=== PATIENT | female | born 1975 | race Two or more races ===

== ENCOUNTER → 2019-03-05 | Outpatient (CLI) | payer BC ==
[2019-03-05 15:52] LABS: Free T4 (Free Thyroxine) 1.13 ng/dL (0.89-1.76)
[2019-03-05 15:53] LABS: Free T3 3.15 pg/mL (2.3-4.2)
== END | disposition home or self-care (01) ==
LOC: LAB 15:00
PROVIDERS: ATTEND Internal Medicine
DX: E05.90 Thyrotoxicosis, unspecified without thyrotoxic crisis or storm (principal)
CPT/HCPCS: 36415; 84439; 84443; 84481

== ENCOUNTER 2019-06-04 07:31 | Inpatient (IN) | payer BC ==
[~2019-06-04] VITALS: Ht 152.4 cm; Wt 83.3 kg
[2019-06-04] MEDS ORDERED: KETOROLAC TROMETH 30 MG/ML 1ML VIAL IV ONE (08:00)
[2019-06-04] MEDS ORDERED: METOCLOPRAMIDE HCL 5MG/ml INJ 2ml VIAL IV ONE (08:00)
[2019-06-04 08:09] LABS: Urine Amorphous Crystal FEW /hpf (None Seen); Urine Bacteria FEW /hpf (None Seen); Urine Blood 2+ /uL (Negative); Urine Mucus FEW (None Seen); Urine Specific Gravity 1.033 (1.001-1.035); Urine WBC 10 /hpf (0 - 5)
[2019-06-04 08:09] LABS: Basophils # (auto) 0.1 uL; Basophils % (auto) 0.8 % (0.0-2.0); Eosinophils # (auto) 0.3 uL; Eosinophils % (auto) 3.6 % (0.0-7.0); Hematocrit 47.9 % (36.0-46.0); Hemoglobin 16.4 g/dL (12.2-16.2); Lymphocytes # (auto) 2.2 uL; Lymphocytes % (auto) 23.9 % (10.0-50.0); Mean Corpuscular Hemoglobin 31.4 pg (28.0-32.0); Mean Corpuscular Hgb Conc. 34.2 g/dL (32.0-36.0); Monocytes # (auto) 0.5 uL; Monocytes % (auto) 5.9 % (0.0-12.0); Neutrophils % (auto) 65.8 % (37.0-80.0); Nucleated Red Blood Cells % 0.2 %; Platelet Count (auto) 247 10^3/uL (140-450); Red Cell Distribution Width 13.4 % (11.8-14.3); White Blood Cell 9.2 10^3/uL (4.4-10.8)
[2019-06-04 08:28] LABS: Albumin 4.3 g/dL (3.4-5.0); Calcium 9.3 mg/dL (8.5-10.1); Potassium 3.9 mmol/L (3.5-5.1)
[2019-06-04 08:32] LABS: BUN/Creatinine Ratio 19.8; Bilirubin, Total 0.8 mg/dL (0.2-1.0); Total Protein 8.2 g/dL (6.4-8.2)
[2019-06-04] MEDS ORDERED: HYDROmorphone HCL 2 MG/ML VL IV ONE (09:30)
[2019-06-04] MEDS ORDERED: ONDANSETRON HCL 4 MG/2 ML VIAL IV ONE (09:30)
[2019-06-04] MEDS ORDERED: MORPHINE SULF INJ 2 MG/ML SYRINGE 1ML IV PRN (09:45)
[2019-06-04] MEDS ORDERED: hydrALAZINE HCL 20 MG/ML VL IV PRN (09:45)
[2019-06-04] MEDS ORDERED: HYDROcodone-ACET 5/325MG TAB PO PRN (09:45)
[2019-06-04] MEDS ORDERED: SODIUM CHLORIDE 0.9% 1,000 ML IV ONE (09:45)
[2019-06-04] MEDS ORDERED: ACETAMINOPHEN 500 MG TAB PO PRN (09:45)
[2019-06-04] MEDS: TAMSULOSIN HYDROCHLORIDE 0.4 MG CAP PO SCH ×2 (10:36→17:50)
[2019-06-04] MEDS: FAMOTIDINE 20 MG TAB PO SCH (10:37)
[2019-06-04] MEDS: DOCUSATE SOD 100 MG CAP PO SCH ×2 (10:37→22:14)
[2019-06-04] MEDS: SODIUM CHLORIDE 0.9% 1,000 ML IV SCH ×2 (10:46→15:13)
--- NOTE | 2019-06-04 11:16 | NUR ---
MS admit from ER HUANG,JUNE admitted to tele/MS after SBAR received. Patient oriented to CECILIA SHAFFER, RN primary RN,med-surg unit, room 280, bed A, and unit policies regarding patient care and visiting hours. Patient weighed by bedscale and encouraged to call if they need something. All questions and concerns addressed, patient verbalized understanding.
--- NOTE | 2019-06-04 11:45 | NUR ---
PATIENT REPORTING PAIN 02/04. MSO4- NOT MANAGING PAIN WELL DILAUDID. THIS RN TO CALL HOSPITALIST FOR SCHEDULED DILAUDID.
--- NOTE | 2019-06-04 11:53 | NUR ---
FILTER PLACED IN BATHROOM. EDUCATED PATIENT TO CALL THIS RN IF PATIENT REPORTS PASSING STONE.
[2019-06-04 12:03] VITALS: BP 142/92
--- NOTE | 2019-06-04 12:47 | NUR ---
PATIENT USING BATHROOM CALL LIGHT, PATIENT FOUND SITTING ON TOILET, IN TEARS. PATIENT CRYING WITH PAIN AND FEAR. THIS RN ADMINISTERED PAIN MEDICATION ORDERED. PATIENT RETURNED TO BED, AND BECAME MUCH MORE COMFORTABLE. THIS RN NOTED TISSUE IN URINE FILTER, NO STONES.
[2019-06-04] MEDS: HYDROmorphone HCL 2 MG/ML VL IV PRN ×3 (12:48→20:30)
[2019-06-04] MEDS ORDERED: MANNITOL FTV 25% 12.5 GM/50 ML 50 ML IV ONE (13:30)
--- NOTE | 2019-06-04 16:54 | NUR ---
URINE STRAINED FOR A SECOND TIME. NO STONES PRESENT.
[2019-06-04 17:00] VITALS: BP 138/84
--- NOTE | 2019-06-04 18:48 | NUR ---
CLOSING SHIFT NOTE: PATIENT RESTING COMFORTABLY IN BED WITH WARM HEAT PACKS. EDUCATED ON CALLING WHEN DONE URINATING FOR STRAINING OF STONE. PATIENT VERBALIZED UNDERSTANDING. EDUCATED ON NEXT DUE PAIN MEDICATION. AT BEDSIDE. WILL ENDORSE CARE TO NOC RN.
[2019-06-04] MEDS: ONDANSETRON HCL 4 MG/2 ML VIAL IV PRN (19:19)
--- NOTE | 2019-06-04 19:27 | NUR ---
CARE ENDORSED TO DEION LEA.
--- NOTE | 2019-06-04 21:46 | NUR ---
NAUSEA PATIENT C/O NAUSEA EVEN WITH ZOFRAN 4MG IV EVERY 4HRS PRN LAST GIVEN 2 HRS PRIOR. AND REQUESTING NAUSEA MEDICATION. PAGED HOSPITALIST AWAITING CALL BACK FOR ORDERS.
[2019-06-04] MEDS ORDERED: PROMETHAZINE HCL 25 MG/ML 1ML IV ONE (22:00)
[2019-06-04 23:49] VITALS: BP 142/90
[2019-06-05 04:58] VITALS: BP 125/82
[2019-06-05 06:09] LABS: Basophils # (auto) 0.1 uL; Basophils % (auto) 0.5 % (0.0-2.0); Eosinophils # (auto) 0 uL; Eosinophils % (auto) 0.5 % (0.0-7.0); Hematocrit 39.2 % (36.0-46.0); Hemoglobin 13.4 g/dL (12.2-16.2); Lymphocytes # (auto) 1.2 uL; Lymphocytes % (auto) 11.8 % (10.0-50.0); Mean Corpuscular Hemoglobin 31.7 pg (28.0-32.0); Mean Corpuscular Hgb Conc. 34.2 g/dL (32.0-36.0); Mean Corpuscular Volume 92.5 fL (80.0-100.0); Monocytes # (auto) 1.1 uL; Monocytes % (auto) 10.5 % (0.0-12.0); Neutrophils % (auto) 76.7 % (37.0-80.0); Platelet Count (auto) 195 10^3/uL (140-450); Red Blood Cells 4.23 10^6/uL (4.0-5.20); Red Cell Distribution Width 13.1 % (11.8-14.3); White Blood Cell 10.4 10^3/uL (4.4-10.8)
[2019-06-05 06:28] LABS: Calcium 8.1 mg/dL (8.5-10.1); Potassium 4.8 mmol/L (3.5-5.1)
[2019-06-05] MEDS: SODIUM CHLORIDE 0.9% 1,000 ML IV SCH ×3 (07:30→17:36)
[2019-06-05] MEDS: HYDROmorphone HCL 2 MG/ML VL IV PRN ×4 (08:17→22:31)
[2019-06-05] MEDS: FAMOTIDINE 20 MG TAB PO SCH (08:18)
[2019-06-05] MEDS: DOCUSATE SOD 100 MG CAP PO SCH ×2 (08:18→22:24)
[2019-06-05] MEDS: ONDANSETRON HCL 4 MG/2 ML VIAL IV PRN (08:18)
[2019-06-05 09:00] VITALS: BP 135/89
[2019-06-05] MEDS ORDERED: MANNITOL FTV 25% 12.5 GM/50 ML 50 ML IV ONE (10:00)
--- NOTE | 2019-06-05 12:00 | NUR ---
Patient refusing guevara catheter at this time. Wants to speak to doctor shaikh francesca.
[2019-06-05 13:00] VITALS: BP 125/92
--- NOTE | 2019-06-05 14:35 | NUR ---
DOCTOR AT BEDSIDE. NEW ORDERS RECEIVED, SEE EMR FOR ORDERS.
[2019-06-05] MEDS ORDERED: HYDROmorphone HCL 2 MG/ML VL IV ONE (14:45)
[2019-06-05 16:39] VITALS: BP 141/94
--- NOTE | 2019-06-05 17:29 | NUR ---
RECEIVED CALL BACK FROM DOCTOR PANCHO, INFORMED MD OF BREAK THROUGH PAIN AFTER DILAUDID, AND PATIENT SAYING SHE HAS UNBEARABLE PAIN IN LEFT FLANK AND SIDE. RN ASK IF MD WANTED REPEAT CT, MD STATED NO NEED AT THIS TIME. NEW ORDERS RECEIVED FOR PAIN MEDS, SEE EMR FOR ORDER.
[2019-06-05] MEDS: TAMSULOSIN HYDROCHLORIDE 0.4 MG CAP PO SCH (17:42)
[2019-06-05] MEDS ORDERED: KETOROLAC TROMETH 30 MG/ML 1ML VIAL IV ONE (17:45)
[2019-06-05 23:42] VITALS: BP 145/95
[2019-06-06] MEDS: SODIUM CHLORIDE 0.9% 1,000 ML IV SCH ×3 (01:31→17:45)
[2019-06-06] MEDS: ONDANSETRON HCL 4 MG/2 ML VIAL IV PRN ×3 (03:25→21:50)
[2019-06-06] MEDS: HYDROmorphone HCL 2 MG/ML VL IV PRN ×3 (03:29→21:50)
--- NOTE | 2019-06-06 03:48 | NUR ---
LOWER ABDOMINAL PAIN PATIENT C/O 10/10 ABDOMINAL PAIN AND NAUSEA. ADMINSITERED DILAUDID 1MG IV AND ZOFRAN 4MG IV PRESCRIBED. PATIENT TOLERATED WELL. PATIENT BROUGHT BACK TO BED. WARM COMPRESS APPLLIED TO LOWER ABDOMEN.
[2019-06-06 05:28] VITALS: BP 148/96
[2019-06-06 06:12] LABS: Basophils # (auto) 0 uL; Basophils % (auto) 0.4 % (0.0-2.0); Eosinophils # (auto) 0.1 uL; Eosinophils % (auto) 1.2 % (0.0-7.0); Hemoglobin 13.2 g/dL (12.2-16.2); Lymphocytes # (auto) 0.8 uL; Lymphocytes % (auto) 8.2 % (10.0-50.0); Mean Corpuscular Hemoglobin 31.8 pg (28.0-32.0); Mean Corpuscular Hgb Conc. 34.6 g/dL (32.0-36.0); Mean Corpuscular Volume 91.9 fL (80.0-100.0); Monocytes # (auto) 0.8 uL; Monocytes % (auto) 7.7 % (0.0-12.0); Neutrophils # (auto) 8.5 uL; Neutrophils % (auto) 82.5 % (37.0-80.0); Nucleated Red Blood Cells % 0.1 %; Platelet Count (auto) 176 10^3/uL (140-450); Red Blood Cells 4.13 10^6/uL (4.0-5.20); Red Cell Distribution Width 13.1 % (11.8-14.3); White Blood Cell 10.3 10^3/uL (4.4-10.8)
[2019-06-06 06:29] LABS: BUN/Creatinine Ratio 14.1; Potassium 4.1 mmol/L (3.5-5.1)
--- NOTE | 2019-06-06 07:45 | NUR ---
Opening Shift Note Assumed care of patient, awake and alert. Respiration are even and unlabored no S/S of distress noted. Bed in lowest position, breaks locked, side rails up x2, call light with in reach. Instructed on POC and to call for assist PRN, will continue to monitor for changes Q1hr and PRN.
[2019-06-06] MEDS: FAMOTIDINE 20 MG TAB PO SCH (07:55)
[2019-06-06] MEDS: DOCUSATE SOD 100 MG CAP PO SCH ×2 (07:55→21:50)
[2019-06-06 08:50] VITALS: BP 141/92
[2019-06-06] MEDS ORDERED: ELET40TA PO (10:08)
[2019-06-06] MEDS ORDERED: HYDROcodone-ACET 5/325MG TAB PO PRN (11:00)
[2019-06-06] MEDS: KETOROLAC TROMETH 30 MG/ML 1ML VIAL IV PRN ×2 (11:10→17:45)
[2019-06-06 12:49] VITALS: BP 158/99
[2019-06-06 16:49] VITALS: BP 146/90
[2019-06-06] MEDS: TAMSULOSIN HYDROCHLORIDE 0.4 MG CAP PO SCH (17:46)
[2019-06-06] MEDS: PHENAZOPYRIDINE HCL 100 MG TAB PO SCH (17:46)
[2019-06-06 22:36] VITALS: BP 146/96
[2019-06-07] MEDS: SODIUM CHLORIDE 0.9% 1,000 ML IV SCH ×2 (01:31→09:31)
[2019-06-07 05:38] VITALS: BP 132/87
[2019-06-07 06:01] LABS: Calcium 8.6 mg/dL (8.5-10.1); Potassium 3.8 mmol/L (3.5-5.1)
[2019-06-07 06:02] LABS: BUN/Creatinine Ratio 14.3
[2019-06-07] MEDS: PHENAZOPYRIDINE HCL 100 MG TAB PO SCH ×2 (08:16→12:09)
[2019-06-07 09:00] VITALS: BP 144/100
[2019-06-07] MEDS: FAMOTIDINE 20 MG TAB PO SCH (09:57)
[2019-06-07] MEDS: DOCUSATE SOD 100 MG CAP PO SCH (09:57)
[2019-06-07 13:00] VITALS: BP 153/105
--- NOTE | 2019-06-07 15:03 | NUR ---
Nutrition Assessment Notes Please refer to link for full assessment notes Est energy needs: 5370-4055 kcals (14-18 kcal/kgBW) Est protein needs: 67-83 gms/day (0.8-1.0 gm/kgBW) Will continue to monitor and reassess prn Addendum: 06/07/19 at [address] Amended: Links added.
[2019-06-07 15:40] VITALS: BP 138/76
[2019-06-07 15:57] VITALS: BP 139/79
== END 2019-06-07 16:30 | disposition home or self-care (01) | DRG 694 ==
LOC: ER 07:31 → WEST WING 11:07 → UNDOADMIN 11:12 → WEST WING 11:55
PROVIDERS: ADMIT Nurse Practitioner Acute Care; ATTEND Internal Medicine
DX: N13.2 Hydronephrosis with renal and ureteral calculous obstruction (principal); E05.00 Thyrotoxicosis with diffuse goiter without thyrotoxic crisis or storm; E86.0 Dehydration; N18.3 Chronic kidney disease, stage 3 (moderate); N17.0 Acute kidney failure with tubular necrosis; E66.9 Obesity, unspecified; Z68.35 Body mass index [BMI] 35.0-35.9, adult; Z90.710 Acquired absence of both cervix and uterus; Z90.49 Acquired absence of other specified parts of digestive tract; Z88.5 Allergy status to narcotic agent; Z82.49 Family history of ischemic heart disease and other diseases of the circulatory system; Z79.899 Other long term (current) drug therapy
CPT/HCPCS: 36415; 74176; 80048; 80053; 81001; 83735; 84443; 85025; 96361; 96374; 96375; G0378; J1885; J2405

== ENCOUNTER → 2019-12-09 | Outpatient (CLI) | payer BC ==
[~2019-12-09] MED LIST: ELET40TA PO
[2019-12-09 10:11] LABS: Basophils # (auto) 0.1 10 ^3/uL (0-0.2); Basophils % (auto) 1.7 % (0.0-2.0); Eosinophils # (auto) 0.3 10 ^3/uL (0-0.8); Eosinophils % (auto) 5.2 % (0.0-7.0); Hematocrit 47.3 % (36.0-46.0); Hemoglobin 15.9 g/dL (12.2-16.2); Lymphocytes # (auto) 1.9 10 ^3/uL (0.4-5.4); Lymphocytes % (auto) 33.2 % (10.0-50.0); Mean Corpuscular Hemoglobin 30.6 pg (28.0-32.0); Mean Corpuscular Hgb Conc. 33.6 g/dL (32.0-36.0); Mean Corpuscular Volume 91.1 fL (80.0-100.0); Monocytes # (auto) 0.4 10 ^3/uL (0-1.3); Monocytes % (auto) 7.8 % (0.0-12.0); Neutrophils # (auto) 2.9 10 ^3/uL (1.6-8.6); Neutrophils % (auto) 52.1 % (37.0-80.0); Platelet Count (auto) 254 10^3/uL (140-450); Red Blood Cells 5.19 10^6/uL (4.0-5.20); Red Cell Distribution Width 13.3 % (11.8-14.3); White Blood Cell 5.6 10^3/uL (4.4-10.8)
[2019-12-09 10:31] LABS: Potassium 4.5 mmol/L (3.5-5.1)
[2019-12-09 10:37] LABS: Free T4 (Free Thyroxine) 1.11 ng/dL (0.89-1.76)
[2019-12-09 10:38] LABS: Free T3 2.74 pg/mL (2.3-4.2)
[2019-12-09 10:41] LABS: Bilirubin, Total 0.6 mg/dL (0.2-1.0); Calcium 9.2 mg/dL (8.5-10.1); Total Protein 7.4 g/dL (6.4-8.2)
== END | disposition home or self-care (01) ==
LOC: LAB 09:13
PROVIDERS: ATTEND Internal Medicine
DX: E05.90 Thyrotoxicosis, unspecified without thyrotoxic crisis or storm (principal); G43.109 Migraine with aura, not intractable, without status migrainosus
CPT/HCPCS: 36415; 80053; 80061; 83036; 84439; 84443; 84481; 85025

== ENCOUNTER 2024-10-13 05:32 | Emergency (ER) | payer BC, OTHER ==
[~2024-10-13] VITALS: Ht 160 cm; Wt 75.0 kg
[2024-10-13] MEDS: SODIUM CHLORIDE 0.9% 1,000 ML IV ONE ×2 (06:24→07:08)
[2024-10-13] MEDS: KETOROLAC TROMETH 30 MG/ML 1ML VIAL IV ONE (06:24)
[2024-10-13 06:50] VITALS: PULSE 98; RESP 18; O2SAT 100
[2024-10-13 06:51] LABS: Basophils # (auto) 0.1 10 ^3/uL (0-0.2); Basophils % (auto) 1.3 % (0.0-2.0); Eosinophils # (auto) 0.5 10 ^3/uL (0-0.8); Eosinophils % (auto) 7.1 % (0.0-7.0); Hematocrit 42.7 % (36.0-46.0); Hemoglobin 14.6 g/dL (12.2-16.2); Lymphocytes # (auto) 2.1 10 ^3/uL (0.4-5.4); Lymphocytes % (auto) 32.3 % (10.0-50.0); Mean Corpuscular Hgb Conc. 34.2 g/dL (32.0-36.0); Mean Corpuscular Volume 90.7 fL (80.0-100.0); Monocytes # (auto) 0.4 10 ^3/uL (0-1.3); Monocytes % (auto) 5.8 % (0.0-12.0); Neutrophils # (auto) 3.5 10 ^3/uL (1.6-8.6); Neutrophils % (auto) 53.5 % (37.0-80.0); Nucleated Red Blood Cells % 0.1 %; Platelet Count (auto) 266 10^3/uL (140-450); Red Blood Cells 4.71 10^6/uL (4.0-5.20); Red Cell Distribution Width 13.4 % (11.8-14.3); White Blood Cell 6.5 10^3/uL (4.4-10.8)
--- NOTE | 2024-10-13 06:52 | ED.PDOC ---
General HPI Comments 49 year old female presents to the ED with a chief complaint of flank pain onset today (10/13/24). Patient states she woke up this morning experiencing LT flank pain radiating to LT back. Since yesterday, she began experiencing dysuria with dark urine. Patient has experienced kidney stones in the past, noticed pain is similar. PMHx kidney stones. Denies fever, chills, hematuria, nausea, vomiting, diarrhea, headache, dizziness. No other symptoms or modifying factors present at this time. Chief Complaint: Flank Pain Time Seen by MD: 06:40 Reviewed notes: Medications, Allergies Allergies: Coded Allergies: Codeine (Verified Allergy, Unknown, 06/04/19) Home Meds Reported Medications Eletriptan Hydrobromide (Relpax) 40 Mg Tab, 40 MG PO, TAB 06/06/19 Information Source: Patient Mode of Arrival: Ambulatory Severity: Moderate Timing: Hours Duration: Since onset Prehospital treatment: None Onset: Spontaneous Symptoms: Dysuria History of: Kidney stone Location: (L)Flank Modifying factors: None associated signs and symptoms: Flank Pain, Back Pain, Dysuria Past Medical History PAST MEDICAL HISTORY: Kidney Stones, Thyroid Surgical History: Appendectomy, Hernia Repair, Hysterectomy [employer] History: No Pertinent [employer] History Family History Family History: Reviewed,noncontributory to illness Social History Smoker: Non-Smoker Alcohol: Denies ETOH Use Drugs: Denies Drug Use Lives In: Home Constitutional: denies: chills, diaphoresis, fatigue, fever, malaise, sweats, weakness, others EENTM: denies: blurred vision, double vision, ear bleeding, ear discharge, ear drainage, ear pain, ear ringing, eye pain, eye redness, hearing loss, mouth pain, mouth swelling, nasal discharge, nose bleeding, nose congestion, nose pain, photophobia, tearing, throat pain, throat swelling, voice changes, others Respiratory: denies: cough, hemoptysis, orthopnea, SOB at rest, shortness of breath, SOB with excertion, stridor, wheezing, others Cardiovascular: denies: chest pain, dizzy spells, diaphoresis, Dyspnea on exertion, edema, irregular heart beat, left arm pain, lightheadedness, palpitations, PND, syncope, others Gastrointestinal: denies: abdomen distended, abdominal pain, blood streaked bowels, constipated, diarrhea, dysphagia, difficulty swallowing, hematemesis, melena, nausea, poor appetite, poor fluid intake, rectal bleeding, rectal pain, vomiting, others Genitourinary: reports: dysuria, flank pain (LT); denies: abnormal vagina bleeding, burning, dyspareunia, frequency, hematuria, incontinence, pain, , vagina discharge, urgency, others Neurological: denies: dizziness, fainting, headache, left sided numbness, left sided weakness, numbness, paresthesia, pre-existing deficit, right sided numbness, right sided weakness, seizure, speech problems, tingling, tremors, weakness, others Musculoskeletal: reports: back pain; denies: gout, joint pain, joint swelling, muscle pain, muscle stiffness, neck pain, others Integumetry: denies: bruises, change in color, change in hair/nails, dryness, laceration, lesions, lumps, rash, wounds, others Allergic/Immunocompromised: denies: Difficulty Healing, Frequent Infections, Hives, Itching, others Hematologic/Lymphatic: denies: anemia, blood clots, easy bleeding, easy bruising, swollen glands, others Endocrine: denies: excessive hunger, excessive sweating, excessive thirst, excessive urination, flushing, intolerance to cold, intolerance to heat, unexplained weight gain, unexplained weight loss, others Psychiatric: denies: anxiety, bipolar disorder, depression, hopeless, panic disorder, schizophrenia, sleepless, suicidal, others All Other Systems: Reviewed and Negative Physical Exam General Appearance: No Apparent Distress, Normal HEENT: Normal ENT Inspection, Pharynx Normal, TMs Normal Neck: Full Range of Motion, Non-Tender, Normal, Normal Inspection Respiratory: Chest Non-Tender, Lungs Clear, No Accessory Muscle Use, No Res piratory Distress, Normal Breath Sounds Cardiovascular: No Edema, No JVD, No Murmur, No Gallop, Normal Peripheral Pulses, Regular Rate/Rhythm Breast Exam: Deferred Gastrointestinal: No Organomegaly, Non Tender, No Pulsatile Mass, Normal Bowel Sounds, Soft Genitalia: Deferred Pelvic: Deferred Rectal: Deferred Extremities: No calf tenderness, Normal capillary refill, Normal inspection, Normal range of motion, Non-tender, No pedal edema Musculoskeletal : Apperance: Normal Neurologic: Alert, paper machine back tender II-XII nml as Tested, No Motor Deficits, Normal Affect, Normal Mood, No Sensory Deficits Cerebellar Function: Normal Reflexes: Normal Skin: Dry, Normal Color, Warm Lymphatic: No Adenopathy Was a procedure done? Was a procedure done?: No Differential Diagnosis Kidney stone (Female): Pyelonephritis, Renal failure, Urinary obstruction, Urolithiasis Kidney stone (Male): N/A Penile/Scrotal: N/A Urinary Problem (Male): N/A Urinary Problem (Female): UTI X-Ray, Labs, Meds, VS Vital Signs Date Time Temp Pulse Resp B/P (MAP) Pulse Ox O2 Delivery O2 Flow Rate FiO2 10/13/24 07:50 91 15 130/87 10/13/24 07:04 80 18 131/88 10/13/24 06:50 98 18 100 Room Air* 0 21 10/13/24 06:50 98.2 98 18 145/93 (110) 100 98.2 10/13/24 05:55 98.3 92 20 131/88 (102) 96 98.3 Lab Test 10/13/24 06:20 10/13/24 05:48 Range/Units White Blood Count 6.5 4.4-10.8 10^3/uL Red Blood Count 4.71 4.0-5.20 10^6/uL Hemoglobin 14.6 12.2-16.2 g/dL Hematocrit 42.7 36.0-46.0 % Mean Corpuscular Volume 90.7 80.0-100.0 fL Mean Corpuscular Hemoglobin 31.0 28.0-32.0 pg Mean Corpuscular Hemoglobin Concent 34.2 32.0-36.0 g/dL Red Cell Distribution Width 13.4 11.8-14.3 % Platelet Count 266 140-450 10^3/uL Mean Platelet Volume 9.9 6.9-10.8 fL Neutrophils (%) (Auto) 53.5 37.0-80.0 % Lymphocytes (%) (Auto) 32.3 10.0-50.0 % Monocytes (%) (Auto) 5.8 0.0-12.0 % Eosinophils (%) (Auto) 7.1 H 0.0-7.0 % Basophils (%) (Auto) 1.3 0.0-2.0 % Neutrophils # (Auto) 3.5 1.6-8.6 10 ^3/uL Lymphocytes # (Auto) 2.1 0.4-5.4 10 ^3/uL Monocytes # (Auto) 0.4 0-1.3 10 ^3/uL Eosinophils # (Auto) 0.5 0-0.8 10 ^3/uL Basophils # (Auto) 0.1 0-0.2 10 ^3/uL Nucleated Red Blood Cells 0.1 % Sodium Level 139 136-145 mmol/L Potassium Level 4.0 3.5-5.1 mmol/L Chloride Level 106 98-107 mmol/L Carbon Dioxide Level 24 20-31 mmol/L Anion Gap 9 5-15 Blood Urea Nitrogen 22 9-23 mg/dL Creatinine 1.14 H 0.550-1.02 mg/dL Glomerular Filtration Rate Calc 59 >90 mL/min BUN/Creatinine Ratio 19.3 10.0-20.0 Serum Glucose 100 74-106 mg/dL Calcium Level 9.2 8.7-10.4 mg/dL Total Bilirubin 0.3 0.2-1.0 mg/dL Aspartate Amino Transferase (AST) 10 L 13-40 U/L Alanine Aminotransferase (ALT) 11 7-40 U/L Alkaline Phosphatase 67 46-116 U/L Total Protein 6.8 5.7-8.2 g/dL Albumin 4.5 3.2-4.8 g/dL Urine Color Colorless Yellow Urine Clarity Turbid H Clear Urine pH 6.0 5.0-9.0 Urine Specific [place] 1.027 1.001-1.035 Urine Protein Trace H Negative Urine Ketones Negative Negative Urine Blood 3+ H Negative /uL Urine Nitrite Negative Negative Urine Bilirubin Negative Negative Urine Urobilinogen Normal Negative mg/dL Urine Leukocyte Esterase Negative Negative /uL Urine RBC 2059 0 - 4 /hpf Urine Microscopic WBC 3 0-5 /HPF Urine Squamous Epithelial Cells Few <5 /hpf Urine Bacteria Few H None Seen /hpf Urine Mucus Few None Seen Urine Glucose Normal Normal mg/dL Current Medications Medications (Trade) Dose Ordered Sig/Mike Route Start Time Stop Time Status Last Admin Ketorolac Tromethamine (Toradol Injection) 30 mg ONCE ONCE IV 10/13/24 06:15 10/13/24 06:16 DC 10/13/24 06:24 Sodium Chloride 1,000 ml @ 200 mls/hr Q5H ONCE IV 10/13/24 06:15 10/13/24 11:14 10/13/24 06:24 Sodium Chloride 1,000 ml @ 1,000 mls/hr Q1H ONCE IV 10/13/24 06:45 10/13/24 07:44 DC 10/13/24 07:08 Morphine Sulfate 4 mg ONCE ONCE IV 10/13/24 06:45 10/13/24 06:46 DC 10/13/24 07:04 Ondansetron HCl (Zofran) 4 mg ONCE ONCE IV 10/13/24 06:45 10/13/24 06:46 DC 10/13/24 07:06 [place] [id number] Ph: [phone] DIAGNOSTIC IMAGING Diagnostic Imaging Report : [id number] Signed PATIENT: JUNE HUANG ACCT: [id number] UNIT: [id number] : 1975 LOC: ER ROOM / BED: / AGE / SEX: 49 / F ADM STATUS: REG ER SERVICE 3 ORDERING PHYSICIAN: DENAE BATRES PROCEDURE(s): ABPL - CT AB PEL WO CON-NO ORAL OR IV REASON: flank pain ORDER NUMBER(s): [id number], ACCESSION NUMBER(s): [id number] Exam: CT CT AB PEL WO CON-NO ORAL OR IV History: flank pain Comparison Study: None Technique: Multidetector spiral CT of the abdomen and pelvis was performed from lung bases to pubic symphysis. Imaging was performed without intravenous contrast. Coronal and sagittal multiplanar reformats were obtained from the axial data set by the technologist. Radiation Dose : 1. Abdomen/Pelvis: CTDIvol 13.66 mGy, DLP 783.76 mGy*cm. Findings: Evaluation of vasculature and solid organs is limited due to lack of intravenous contrast use. Lung Bases: Lung bases are clear. Visualized portions of the heart and pericardium are unremarkable. Liver: The liver is normal in size. 9 mm low attenuating lesion in the right lobe. Gallbladder and Biliary Tree: The gallbladder is unremarkable. No intrahepatic or extrahepatic biliary ductal dilatation. Spleen: Unremarkable Pancreas: The pancreas is grossly unremarkable. Adrenal Glands: Unremarkable Kidneys: Mild left hydronephrosis. There is a 4 mm stone in the urinary bladder likely accounting for the hydronephrosis. Right kidney and ureter are unremarkable. GI tract: Small hiatal hernia. No evidence of small bowel wall thickening or abnormal dilatation to suggest bowel obstruction. The colon is unremarkable. The appendix is not visualized, however no inflammatory changes in the right lower quadrant to suggest acute appendicitis. Peritoneum/mesentery/retroperitoneum. No evidence of free intraperitoneal air. No ascites. No evidence of suspicious lymphadenopathy. Abdominal Wall: Unremarkable. Vasculature: The visualized abdominal aorta is normal in size and caliber. Evaluation of abdominal and pelvic vessels is limited due to lack of intravenous contrast. Urinary Bladder: Grossly unremarkable for degree of distention. Pelvic Organs: Unremarkable Musculoskeletal: No aggressive focal bony lesions, acute fractures or dislocation. IMPRESSION: 1. Mild left hydronephrosis likely secondary to stone in the urinary bladder just past the UVJ measuring 4 mm. 2. Small hiatal hernia. 3. Low attenuating liver lesion measuring 9 mm, too small to characterize on this study. ATED BY: MICKY DINH MD DICTATED DATE/TIME: 10/13/24701 SIGNED BY: MICKY DINH MD SIGNED DATE/TIME: 10/13/24701 CC: Time of 1ST Reevaluation: 07:10 Reevaluation 1ST: Unchanged Patient Education/Counseling: Diagnosis, Treatment, Prognosis Family Education/Counseling: No Family Present Additional Information The following tests were ordered, and results were reviewed by me: CT AB PEL WO CON, CBC, CMP, UA I reviewed and agreed with the following test results read by other providers: CT AB PEL WO CON, I discussed treatment and results with medical personnel and: patient Comprehensive systems review obtained and negative except for what is stated in the HPI. Departure 1 Departure Time of Disposition: 08:43 (Patient presented with abdominal pain that was concerning for possible appendicits, gastritis, cholecystitis, colitis, gastroenteritis, or orther possible surgical emergency. Data: 1. I ordered and reviewed the result of at least 3 labs including a CBC, BMP, and Urinalysis. 2. I independently interpreted the following tests: CT Abdoment and Pelvis is concerning for recently passed kidney stone .Risk:This patient has a high risk of morbidity due to further diagnostic testing or treatment and may suffer from an acute abdominal process disorder. Fortunately workup reveals recently passed kidney stone and patient can be safely discharged to home with outpatient follow up.) Impression: Primary Impression: Ureteral colic Disposition: 01 HOME / SELF CARE / HOMELESS Condition: Stable Referrals: MARY CARMEN LAUGHLIN MD Additional Instructions: Your CT scan shows that you passed a 4 mm kidney stone likely while be here. You were referred to a urologist. Please call for an appointment. For pain you can take the followinam: Ibuprofen 400mg with food Noon: Acetaminophen 1000mg 4pm: Ibuprofen 400mg with food 8pm: Acetaminophen 1000mg You should follow up with your regular doctor within one week to ensure you are doing better. If your symptoms worsen or you have any other concerns then please return to the ER. Discharged With: Self Critical Care Note Critical Care Time?: Yes Critical care comment: Intractable abdominal pain Authorized and Performed by: Kathy Cruz MD Total critical care time: Approximately 37 minutes Due to a high probability of clinically significant, life threatening deterioration, the patient required my highest level of preparedness to intervene emergently and I personally spent this critical care time directly and personally managing the patient. This critical care time included obtaining a history; examining the patient; pulse oximetry; ordering and review of studies; arranging urgent treatment with development of a management plan; evaluation of patient's response to treatment; frequent reassessment; and, discussions with other providers. This critical care time was performed to assess and manage the high probability of imminent, life-threatening deterioration that could result in multi-organ failure. It was exclusive of separately billable procedures and treating other patients and teaching time. Please see my other sections and the rest of the note for further information on patient assessment and treatment. Stability Stability form required: No I personally scribed for KATHY CRUZ MD ([email or web address]) on 10/13/24 at 06:52. Electronically submitted by Danae Linda ([email or web address]). I personally scribed for KATHY CRUZ MD ([email or web address]) on 10/13/24 at 06:59. Electronically submitted by Danae Linda ([email or web address]). I personally scribed for KATHY CRUZ MD ([email or web address]) on 10/13/24 at 07:10. Electronically submitted by Danae Linda ([email or web address]). KATHY CRUZ MD October 13, 2024 06:52
[2024-10-13 07:01] LABS: Urine Bacteria FEW /hpf (None Seen); Urine Blood 3+ /uL (Negative); Urine Clarity Turbid (Clear); Urine Color Colorless (Yellow); Urine Mucus FEW (None Seen); Urine Protein, UAD TRACE (Negative); Urine Specific Gravity 1.027 (1.001-1.035); Urine Squamous Epithelial Cell FEW /hpf (<5); Urine Urobilinogen Normal (Negative); Urine WBC 3 /HPF (0-5)
[2024-10-13] MEDS: MORPHINE SULFATE 4 MG/ML SYR/VIAL IV ONE (07:04)
--- NOTE | 2024-10-13 07:04 | DVH ---
Exam: CT CT AB PEL WO CON-NO ORAL OR IV History: flank pain Comparison Study: None Technique: Multidetector spiral CT of the abdomen and pelvis was performed from lung bases to pubic s ymphysis. Imaging was performed without intravenous contrast. Coronal and sagittal multiplanar reform ats were obtained from the axial data set by the technologist. Radiation Dose : 1. Abdomen/Pelvis: CTDIvol 13.66 mGy, DLP 783.76 mGy*cm. Findings: Evaluation of vasculature and solid organs is limited due to lack of intravenous contrast use. Lung Bases: Lung bases are clear. Visualized portions of the heart and pericardium are unremarkable. Liver: The liver is normal in size. 9 mm low attenuating lesion in the right lobe. Gallbladder and Biliary Tree: The gallbladder is unremarkable. No intrahepatic or extrahepatic bilia ry ductal dilatation. Spleen: Unremarkable Pancreas: The pancreas is grossly unremarkable. Adrenal Glands: Unremarkable Kidneys: Mild left hydronephrosis. There is a 4 mm stone in the urinary bladder likely accounting fo r the hydronephrosis. Right kidney and ureter are unremarkable. GI tract: Small hiatal hernia. No evidence of small bowel wall thickening or abnormal dilatation to s uggest bowel obstruction. The colon is unremarkable. The appendix is not visualized, however no infla mmatory changes in the right lower quadrant to suggest acute appendicitis. Peritoneum/mesentery/retroperitoneum. No evidence of free intraperitoneal air. No ascites. No evidenc e of suspicious lymphadenopathy. Abdominal Wall: Unremarkable. Vasculature: The visualized abdominal aorta is normal in size and caliber. Evaluation of abdominal a nd pelvic vessels is limited due to lack of intravenous contrast. Urinary Bladder: Grossly unremarkable for degree of distention. Pelvic Organs: Unremarkable Musculoskeletal: No aggressive focal bony lesions, acute fractures or dislocation. IMPRESSION: 1. Mild left hydronephrosis likely secondary to stone in the urinary bladder just past the UVJ measur ing 4 mm. 2. Small hiatal hernia. 3. Low attenuating liver lesion measuring 9 mm, too small to characterize on this study.
[2024-10-13] MEDS: ONDANSETRON HCL 4 MG/2 ML VIAL IV ONE (07:06)
[2024-10-13 07:20] LABS: Alanine Aminotransferase 11 U/L (7-40); Albumin 4.5 g/dL (3.2-4.8); Alkaline Phosphatase 67 U/L (46-116); Anion Gap 9 (5-15); Aspartate Aminotransferase 10 U/L (13-40); BUN/Creatinine Ratio 19.3 (10.0-20.0); Blood Urea Nitrogen 22 mg/dL (9-23); Calcium 9.2 mg/dL (8.7-10.4); Carbon Dioxide 24 mmol/L (20-31); Chloride 106 mmol/L (98-107); Glucose 100 mg/dL (74-106); Sodium 139 mmol/L (136-145); Total Protein 6.8 g/dL (5.7-8.2)
[2024-10-13 07:21] LABS: Bilirubin, Total 0.3 mg/dL (0.2-1.0)
[2024-10-13 08:44] VITALS: BP 129/93; PULSE 80; RESP 16; TEMP 97.8; O2SAT 99
== END 2024-10-13 09:18 | disposition home or self-care (01) ==
LOC: ER 05:32
DX: N23 Unspecified renal colic (principal); Z79.899 Other long term (current) drug therapy; Z90.710 Acquired absence of both cervix and uterus; Z90.49 Acquired absence of other specified parts of digestive tract; Z98.890 Other specified postprocedural states; Z88.5 Allergy status to narcotic agent
CPT/HCPCS: 36415; 74176; 80053; 81001; 85025; 96361; 96374; 96375; 99285; J1885; J2270; J2405; J7030